=== PATIENT | male | born 1960 ===

== ENCOUNTER 2017-08-18 11:00 | Emergency (ER) | payer MEDICAID ==
[2017-08-18] MEDS ORDERED: Amoxicillin-Clav 875-125 mg Tab PO STA (11:24)
[2017-08-18] MEDS ORDERED: Amoxicillin-Clav 875-125 mg Tab PO ONE (11:30)
--- NOTE | 2017-08-18 11:32 | C.PDOC ---
History Of Present Illness 57 yo male w/PMHx of HTN come in for evaluation of Right earache gradually developed for past 2-3 days associated with clear ear discharges. Pt admits, " swimming, water got into my ear". Otherwise, pt denies fever, chills, headache, dizziness, vertigo, visual changes, focal deficits, sore throat, neck pain, drooling, dysphagia, dyspnea, CP, SOB, wheezing, abd. pain, N/V/D, denies nay other active complaints. Ambulate to Ed for evaluation, not in any apparent distress. HTN noted on triage, pt admits takes HTNmedictaion daily, did not take this AM perhaps. Denies any associated sx with it. Time Seen by Provider: 08/18/17 11:21 Chief Complaint (Nursing): ENT Problem History Per: Patient Past Medical History Reviewed: Historical Data, Nursing Documentation, Vital Signs Vital Signs: Last Vital Signs Temp 99.2 F 08/18/17 11:58 Pulse 97 H 08/18/17 11:58 Resp 20 08/18/17 11:58 BP 170/115 H 08/18/17 11:58 Pulse Ox 97 08/18/17 11:58 - Medical History PMH: HTN Family History: States: No Known Family Hx - Social History Hx Tobacco Use: No Hx Alcohol Use: No Hx Substance Use: No - Immunization History Hx Tetanus Toxoid Vaccination: No Hx Influenza Vaccination: No Hx Pneumococcal Vaccination: No Review Of Systems Except As Marked, All Systems Reviewed And Found Negative. Constitutional: Negative for: Fever, Chills ENT: Positive for: Ear Pain, Ear Discharge. Negative for: Nose Discharge, Nose Congestion, Throat Pain Cardiovascular: Negative for: Chest Pain, Palpitations Respiratory: Negative for: Cough, Shortness of Breath, Wheezing Gastrointestinal: Negative for: Nausea, Vomiting, Abdominal Pain, Diarrhea Genitourinary: Negative for: Dysuria, Incontinence Musculoskeletal: Negative for: Neck Pain, Back Pain Skin: Negative for: Rash Neurological: Negative for: Weakness, Numbness, Headache, Dizziness Physical Exam - Physical Exam Appears: Well, Non-toxic, No Acute Distress Skin: Normal Color, Warm, Dry, No Rash Eye(s): bilateral: PERRL Ear(s): Left: Normal, Right: TM Erythema, Other (ear canal edema and erythema, mils serous discharges. No mastoid tendreness, no edmea or erythema) Nose: No Flaring, No Discharge Oral Mucosa: Moist, No Drooling Tongue: Normal Appearing Lips: Normal Appearing Throat: No Erythema, No Exudate, No Drooling Neck: Normal ROM, Trachea Midline, Supple Cardiovascular: Rhythm Regular, No Murmur, No JVD Respiratory: No Decreased Breath Sounds, No Accessory Muscle Use, No Stridor, No Wheezing Gastrointestinal/Abdominal: Soft, No Tenderness Extremity: Normal ROM, No Deformity, No Swelling Neurological/Psych: Oriented x3, Normal Speech ED Course And Treatment O2 Sat by Pulse Oximetry: 100 Pulse Ox Interpretation: Normal Progress Note: On re-eval, pt is afebrile, hemodynamicaly stable. Non-toxic. Ambulatory in Ed with stable gait. PulseOx 100% RA. ENT: exam c/w Right otitis media/otitis externa. NO mastoid tenderness or erythema/erythema. Neck: Supple, (-) meningeal sign. Lungs: CTA B/L, BS equal B/L. CVS: (+)S1S2, reg. Abd: benign. Neurologicaly intact. HTN noted on triage, pt denies any associated sx with it. Pt advised on course of ds. pt ref. to f/u with PMD to repeat BP, ENT in 2-3 days for re-eval. return if any new changes. Disposition Counseled Patient/Family Regarding: Diagnosis, Need For Followup, Rx Given - Disposition Referrals: [facility] [Outside] Disposition: HOME/ ROUTINE Disposition Time: 11:32 Condition: STABLE Additional Instructions: Keep ear dry, avoid water exposure to Right ear Take medication as prescribed Follow up with PMD, ENT in 2-3 days for re-evaluation. Return to ED if any worsening or new changes. Prescriptions: Amoxicillin/Clavulanate [Augmentin 875 MG-125 MG] 1 tab PO BID #14 tab traMADol [Ultram] 50 mg PO TID #7 tab Instructions: Ear Infections (Otitis Media), High Blood Pressure (DC) Forms: [employer] (Kyrgyz) Print Language: QATARI - Clinical Impression Clinical Impression: Hypertension, Otitis media
[2017-08-18 11:59] VITALS: BP 170/115; PULSE 97; RESP 20; TEMP 99.2
[2017-08-18 15:25] VITALS: O2SAT 100
== END 2017-08-18 12:06 | disposition home or self-care (01) ==
LOC: C.ER 11:00
DX: H66.91 Otitis media, unspecified, right ear (principal); I10 Essential (primary) hypertension